=== PATIENT | male | born 1970 | race Caucasian/White ===

== ENCOUNTER 2018-01-15 18:15 | Emergency (ER) | payer BC, OTHER ==
[2018-01-15 20:53] VITALS: BP 119/91
[2018-01-15] MEDS ORDERED: Albuterol 2.5 MG/3 ML NEB.SOL* (0.083%) INH ONE (20:59)
--- NOTE | 2018-01-15 21:00 | UC ---
UC General HPI - HPI Summary HPI Summary: pt c/o sudden fever, chills, cough, chest congestion and some sob. no hx lung disease and no cp. states sneezing as well. - History of Current Complaint Chief Complaint: UCRespiratory Stated Complaint: SINUS/CONGESTION/COUGH Time Seen by Provider: 01/15/18 20:53 Hx Obtained From: Patient Onset/Duration: Sudden Onset Timing: Constant Pain Intensity: 5 Aggravating: nothing Alleviating: mucinex helps congestion Associated Signs & Symptoms: Positive: Cough, Fever, SOB. Negative: Chest Pain - Allergy/Home Medications Allergies/Adverse Reactions: Allergies Allergy/AdvReac Type Severity Reaction Status Date / Time No Known Allergies Allergy Verified 01/15/18 20:47 PMH/Surg Hx/FS Hx/Imm Hx Previously Healthy: Yes - Surgical History Surgical History: Yes Surgery Procedure, Year, and Place: left knee 1989 - Family History Known Family History: Positive: None - Social History Occupation: Employed Full-time Lives: With Family Alcohol Use: None Substance Use Type: None Smoking Status (MU): Never Smoked Tobacco - Immunization History Vaccination Up to Date: Yes Review of Systems Constitutional: Fever, Chills Skin: Negative Eyes: Negative ENT: Ear Ache Respiratory: Shortness Of Breath, Cough Cardiovascular: Negative Gastrointestinal: Negative Genitourinary: Negative Motor: Negative Neurovascular: Negative Musculoskeletal: Negative Neurological: Negative Psychological: Negative Is Patient Immunocompromised?: No All Other Systems Reviewed And Are Negative: Yes Physical Exam Triage Information Reviewed: Yes Appearance: Well-Appearing Vital Signs: Initial Vital Signs Temp 98.1 F 01/15/18 20:48 Pulse 81 01/15/18 20:48 Resp 16 01/15/18 20:48 BP 119/91 01/15/18 20:48 Pulse Ox 100 01/15/18 20:48 Vital Signs Reviewed: Yes Eyes: Positive: Conjunctiva Clear ENT: Positive: Pharynx normal, TMs normal. Negative: Nasal congestion, Nasal drainage Neck: Positive: Supple, Nontender, No Lymphadenopathy Respiratory: Positive: Lungs clear, No respiratory distress, Decreased breath sounds, Other: - cough is congested Cardiovascular: Positive: RRR, No Murmur Abdomen Description: Positive: Nontender, No Organomegaly, Soft Bowel Sounds: Positive: Present Neurological: Positive: Alert Psychological: Positive: Age Appropriate Behavior Skin Exam: Normal Diagnostics - Laboratory Diagnostic Studies Completed/Ordered: influenza A+ Re-Evaluation - Re-Evaluation Second Eval Re-Evaluation Time: 21:36 - aeration improved and less cough post neb tx. Course/Dx - Differential Dx - Multi-Symptom Provider Diagnoses: Influenza A Discharge - Discharge Plan Condition: Stable Disposition: HOME Prescriptions: Albuterol HFA INHALER* [Ventolin HFA Inhaler*] 2 puff INH Q6H #1 mdi Oseltamivir CAP* [Tamiflu CAP*] 75 mg PO BID #10 cap Patient Education Materials: Influenza (DC) Forms: *Work Release Referrals: Angel Montilla MD [Primary Care Provider] - 7 Days
[2018-01-15] MEDS ORDERED: Oseltamivir CAP* 75 MG CAP PO ONE (21:35)
== END 2018-01-15 21:45 | disposition home or self-care (01) ==
LOC: UCCORT 18:15
DX: J10.1 Influenza due to other identified influenza virus with other respiratory manifestations (principal)
CPT/HCPCS: 87502; 99212; A9270-GY; G0463